=== PATIENT | female | born 1950 | race Caucasian/White ===

== ENCOUNTER 2016-07-31 05:46 | Day surgery (SDC) | payer BC ==
--- NOTE | ~2016-07-31 | OP ---
Record Of Operation [facility] [address] [place]. [address] NAME: OSCAR WOODY : 48 STATUS : [place] [facility] [place] [facility] [place] PAT#: [id number] AGE: 66 ADM/REG DATE : 07/31/16 MR#: [id number] REPORT SERV DATE: 07/31/16 DICTATED BY: TEODORA PEREZ DATE: 07/31/16 REPORT STATUS : Draft TRANSCRIBED BY: MODL DATE: 07/31/16 DATE OF PROCEDURE: 07/31/2016 PREOPERATIVE DIAGNOSIS: Left nasal mass. POSTOPERATIVE DIAGNOSIS: Left nasal mass. PROCEDURE: Left image-guided endoscopic polypectomy/debridement with excision of mass. SURGEON: Teodora Perez M.D. ANESTHESIA: General endotracheal anesthesia was utilized. COMPLICATIONS: No complications noted. ESTIMATED BLOOD LOSS: 3 mL. FLUIDS: 750 mL of fluids given. FINDINGS: Large polypoid mass emanating from the left anterior superior septum just anterior to the insertion of the middle turbinate, filling the left nasal cavity, but not involving the middle turbinate, the middle meatus, the inferior turbinate or the lateral wall. All based up the septum. INDICATIONS FOR PROCEDURE: A 66-year-old female, seen in clinic with a left polypoid nasal mass which was suspicious for polyps versus inverted papilloma. Image-guided CT scan was done showing the mass associated. It would appear at that time at the middle turbinate, mostly in the anterior, but not associated with the lateral wall of the nasal cavity. She has indications for biopsy of this and excision. She was described the risks and benefits of the procedure including blood loss, infection, risk of anesthesia, pain and bleeding postoperatively, further operation necessity, the possibility of carcinoma. She voiced understanding. Signed the consent. The consent was placed on chart at the time of operation. PROCEDURE IN DETAIL: The patient was wheeled to the OR suite and placed on the OR table in supine position. She was sprayed in the preoperative holding area with Afrin prior to the procedure. Once she was in the room, she was switched to the OR table and placed under general endotracheal anesthesia without difficulty, intubated with a regular endotracheal tube. I would place 4% cocaine-soaked cottonoids in both sides of the nasal cavity for approximately 3 minutes to 5 minutes. Prior to beginning, she was prepped and draped appropriately for the procedure, and registered on the [employer] image guidance system and I would close the area. I would scrub and gown, and we began the case. So, we got on the left-hand side to remove the cocaine-soaked cottonoids from both sides of the nasal cavity. I would inject the mass with 1 mL of 1% lidocaine and 1:100,000 epinephrine, visualizing this with a zero-degree endoscope. I could not tell at this point where this was based upon, so I would take a number of pieces for frozen section at the beginning of the case to Record Of [address] [id number] NAME: OSCAR WOODY : 48 STATUS : [place] [facility] [place] [facility] [place] PAT#: [id number] AGE: 66 ADM/REG DATE : 07/31/16 MR#: [id number] REPORT SERV DATE: 07/31/16 DICTATED BY: TEODORA PEREZ DATE: 07/31/16 REPORT STATUS : Draft TRANSCRIBED BY: MARISA DATE: 07/31/16 send to Pathology, and I would take a few other more posterior pieces as well. At this point, I used a microdebrider which registered to the image guidance system, and more or less debrided the mass down. I could see posteriorly like I could see laterally, and as it turned out it based from the septum superiorly just anterior to the insertion of the middle turbinate, so slowly and carefully, we removed this without injuring any other structures until we were down to the base and it was excised at the base. I did inject on the septum as well with 0.5 mL of local anesthetic. Blood loss for this procedure was 3 mL. I took photographs of this side and the contralateral septum as well. The rest of nasal cavity appeared normal. I would take a suction Bovie and Bovie the base where I had excised the mass, so there was no further bleeding. So at this point, I irrigated the nasal cavity. Suctioned this from the nasopharynx and nasal cavity on both sides, and the procedure was complete. She was turned 90 degrees. Returned to the care of anesthesiologist. Subsequently awoken, extubated, and stably transferred to the recovery area. NAHOMY/MARISA Teodora Perez M.D. / [id number] CC: Jeferson Dumont M.D.
[~2016-07-31 05:46] MED LIST: EVISTA60 PO; IMU PO; LOP50 PO; NORV5 PO; PRIN20 PO; PROZAC PO
== END 2016-07-31 13:26 | disposition home or self-care (01) ==
LOC: SDC 05:46
PROVIDERS: Otolaryngology
PROC: 09BK4ZX Excision of Nasal Mucosa and Soft Tissue, Percutaneous Endoscopic Approach, Diagnostic (ICD-10-PCS; principal; 2016-07-31 08:30)
DX: D14.0 Benign neoplasm of middle ear, nasal cavity and accessory sinuses (principal); I10 Essential (primary) hypertension; K75.4 Autoimmune hepatitis; M19.90 Unspecified osteoarthritis, unspecified site; Z79.899 Other long term (current) drug therapy; Z90.710 Acquired absence of both cervix and uterus; Z90.89 Acquired absence of other organs; Z98.890 Other specified postprocedural states
CPT/HCPCS: 80048; 80076; 85014; 85018; 88304; 88305; 88331; 93005; A9270-GY; J0360; J2250; J2405; J2710; J3010